=== PATIENT | male | born 1985 | race Two or more races ===

== ENCOUNTER 2016-10-15 04:40 | Emergency (ER) | payer MEDICAID ==
[2016-10-15] MEDS ORDERED: ONDANSETRON HCL 4 MG/2 ML VIAL IV ONE (04:47)
[2016-10-15] MEDS ORDERED: NS 1,000 ML IV ONE (04:47)
[2016-10-15] MEDS ORDERED: KETOROLAC TROMETH 30 MG/ML VIAL IV ONE (04:50)
[2016-10-15 04:56] VITALS: TEMP 97.2; BMI 25.1
[2016-10-15] MEDS ORDERED: Pharmacy Review for Metformin - IV Contrast Given SCH (05:00)
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
[2016-10-15 05:16] LABS: AUTOMATED BASOPHIL 1.2 % (0-2); AUTOMATED EOSINOPHIL 3.3 % (0-5); AUTOMATED LYMPH 17.5 % (17-44); AUTOMATED MONOCYTE 8.1 % (3-10); AUTOMATED NEUTROPHIL 69.9 % (45-76); MPV 8.2 fL (7.4-10.4)
[2016-10-15 05:34] LABS: BLOOD UREA NITROGEN 12 MG/DL (9-20); CALCIUM 9.3 MG/DL (8.4-10.2); CALCULATED OSMOLALITY 265 MOs/Kg (270-290); CHLORIDE 99 mEq/L (98-107); ETOH-MGDL < 10 mg/dL; GLUCOSE 82 MG/DL (70-99); SODIUM LEVEL 138 mEq/L (137-146); TOTAL PROTEIN 7.6 G/DL (6.3-8.2)
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
[2016-10-15] MEDS ORDERED: MIDAZOLAM 5 MG/5 ML VIAL ONE (06:14)
[2016-10-15] MEDS ORDERED: MIDAZOLAM 5 MG/5 ML VIAL IV ONE (06:15)
[2016-10-15] MEDS ORDERED: NALOXONE 2 MG/2 ML SYRINGE IV STA (06:15)
[2016-10-15] MEDS ORDERED: FENTANYL 100 MCG/2 ML VIAL IV ONE (06:15)
[2016-10-15] MEDS ORDERED: NALOXONE 2 MG/2 ML SYRINGE ONE (06:15)
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
[2016-10-15 08:11] VITALS: BP 122/78; PULSE 68
== END 2016-10-15 07:20 | disposition left against medical advice (07) ==
LOC: ED 04:40
DX: S40.012A Contusion of left shoulder, initial encounter (principal); S60.012A Contusion of left thumb without damage to nail, initial encounter; S43.005A Unspecified dislocation of left shoulder joint, initial encounter; V49.9XXA Car occupant (driver) (passenger) injured in unspecified traffic accident, initial encounter; Y93.9 Activity, unspecified; R07.81 Pleurodynia
CPT/HCPCS: 23650; 36415; 71260; 73030; 73130; 74177; 80053; 80307; 85025; 96361; 96374; 96375; 99283; A9698; J1885; J2250; J2405; J3010; J2310

== ENCOUNTER 2016-10-25 00:50 | Emergency (ER) | payer MEDICAID ==
[2016-10-25 00:51] VITALS: BMI 25.1
== END 2016-10-25 01:25 | disposition left against medical advice (07) ==
LOC: ED 00:50
DX: Z53.21 Procedure and treatment not carried out due to patient leaving prior to being seen by health care provider (principal)